=== PATIENT | male | born 1940 | race African-American/Black ===

== ENCOUNTER 2020-07-24 08:40 | Outpatient (RCR) | payer MEDICARE, SELFPAY | END 2020-12-05 11:00 | disposition home or self-care (01) | LOC: HO.WCC 08:40 | PROVIDERS: PCP Internal Medicine; Visit Provider Physician Assistant | DX: I87.332 Chronic venous hypertension (idiopathic) with ulcer and inflammation of left lower extremity (principal); L97.521 Non-pressure chronic ulcer of other part of left foot limited to breakdown of skin; L97.822 Non-pressure chronic ulcer of other part of left lower leg with fat layer exposed; I25.10 Atherosclerotic heart disease of native coronary artery without angina pectoris; I13.0 Hypertensive heart and chronic kidney disease with heart failure and stage 1 through stage 4 chronic kidney disease, or unspecified chronic kidney disease; I50.9 Heart failure, unspecified; N18.30 Chronic kidney disease, stage 3 unspecified; I25.2 Old myocardial infarction; I87.2 Venous insufficiency (chronic) (peripheral); I49.5 Sick sinus syndrome; Z95.810 Presence of automatic (implantable) cardiac defibrillator; Z87.891 Personal history of nicotine dependence | CPT/HCPCS: 11042; 97597; 99212; 99214 ==

== ENCOUNTER 2020-08-08 13:35 | Outpatient (REF) | payer MEDICARE, SELFPAY ==
--- NOTE | ~2020-08-08 | US_ITS ---
EXAMINATION: NONINVASIVE ASSESSMENT OF THE ARTERIES OF BOTH LOWER EXTREMITIES WITH BILATERAL LOWER EXTREMITY DUPLEX CLINICAL INFORMATION: Nonhealing ulcers TECHNIQUE: Ankle pulse volume recordings, ankle pressure measurements and ankle brachial indices were obtained of the lower extremity arterial system bilaterally in addition to duplex Doppler techniques with wave form analysis and measurement of velocities in the common femoral, profunda femoral, superficial femoral, popliteal and tibial arteries. The study was performed only at rest. COMPARISON: None FINDINGS: a) AT REST: RIGHT LEG: Right direct duplex Doppler findings: There is evidence of calcified atherosclerotic plaque. There is generalized arteriomegaly. There is visualized luminal narrowing of the distal SFA. Common femoral artery: 111 cm/s, Diastolic flow reversal: Yes * Superficial femoral artery (proximal, mid, distal): 100, 93 and 182 cm/s, Diastolic flow reversal: Yes Popliteal artery: 56 cm/s. Diastolic flow reversal: Yes * Posterior tibial artery: 79 cm/s, Diastolic flow reversal: Yes LEFT LEG: Left direct duplex Doppler findings: There is evidence of calcified atherosclerotic plaque. There is generalized arteriomegaly. There is a narrowing distal SFA. * Common femoral artery: 98 cm/s, Diastolic flow reversal: Yes * Superficial femoral artery (proximal, mid, distal): 56, 63 and 86 cm/s, Diastolic flow reversal: No. Monophasic flow. * Popliteal artery: 26 cm/s, Diastolic flow reversal: No. Monophasic flow. * Posterior tibial artery: 88. cm/s, Diastolic flow reversal: No. Monophasic flow. * US/US arterial duplex LE BI IMPRESSION: Atherosclerotic disease with calcified plaque and generalized arteriomegaly. On the right there is visible luminal narrowing of the right distal SFA and increased peak systolic velocity in the distal SFA. There is a normal triphasic waveform. On the left there is visible luminal narrowing of the distal SFA. There is abnormal monophasic flow seen throughout the left lower extremity distal to the common femoral artery and decreased peak systolic velocities in the superficial femoral and popliteal arteries.
== END 2020-08-08 13:36 | disposition home or self-care (01) ==
LOC: HO.US 13:35
PROVIDERS: PCP Internal Medicine; Visit Provider Physician Assistant
DX: I73.9 Peripheral vascular disease, unspecified (principal); L97.811 Non-pressure chronic ulcer of other part of right lower leg limited to breakdown of skin
CPT/HCPCS: 93925

== ENCOUNTER → 2020-09-04 08:59 | Outpatient (BNVA) | payer MEDICARE, SELFPAY | PROVIDERS: PCP Internal Medicine; Visit Provider Surgery Vascular Surgery | DX: I73.9 Peripheral vascular disease, unspecified (principal) | CPT/HCPCS: 99202 ==

== ENCOUNTER 2020-09-06 07:38 | Day surgery (SDC) | payer MEDICARE, SELFPAY ==
[2020-09-06] VITALS (9 sets, daily range): BP systolic 122–136; BP diastolic 62–76; PULSE 50–56; RESP 16–18; TEMP 35.6–36.2; O2SAT 92–100; BMI 26.4
[2020-09-06 08:11] LABS: Basophils Percent Auto 0.3 % (0-2); Eosinophils Percent Auto 0.9 % (0-4); Hematocrit 32.7 % (42-52); Hemoglobin 11.5 g/dl (14.0-18.0); Imm Gran Abs Auto 0.01 X10*3/uL (0.00-0.03); Imm Gran Pct Auto 0.3 % (0.0-0.4); Lymphocytes Absolute Auto 0.6 X10*3/uL (1.2-4.9); Lymphocytes Percent Auto 17.6 % (20-40); MANUAL DIFF FLAG SCAN; Mean Corpuscular HGB Conc 35.2 g/dl (31.0-36.0); Mean Corpuscular Hemoglobin 35.3 pg (27.0-33.0); Mean Corpuscular Volume 100.3 fL (80-98); Mean Platelet Volume 12.7 fL (9.4-12.4); Monocytes Absolute Auto 0.5 X10*3/uL (0.1-1.2); Monocytes Percent Auto 12.8 % (2-11); Neutrophils Absolute Auto 2.4 X10*3/uL (2.0-8.3); Neutrophils Percent Auto 68.1 % (45-73); Platelet Count 101 X10*3/uL (160-400); Red Blood Count 3.26 X10*6/uL (4.60-5.80); Red Cell Distribution Width 16.6 % (11.0-16.0); SCAN SMEAR FLAG 1; White Blood Count 3.5 X10*3/uL (4.8-10.8)
[2020-09-06] MEDS: 0.9 % Sodium Chloride 1,000 ML 100 ML IVCONT (08:27)
[2020-09-06 08:33] LABS: INTERNATIONAL NORM RATIO 1.6 (0.9-1.1); Prothrombin Time 18.8 SEC (10.8-13.0)
[2020-09-06 08:35] LABS: Partial Thromboplastin Time 36.8 SEC (24.1-38.0)
[2020-09-06 08:40] LABS: Anion Gap 19 (12-20); Blood Urea Nitrogen 20 mg/dL (9-16); Calcium 9.2 mg/dL (8.4-10.2); Carbon Dioxide 24 mmol/L (22-29); Chloride 102 mmol/L (96-108); Creatinine Clr Calc Pharmacy 37.6; Estimated Glomerular Filt Rate 39; Glucose Random 91 mg/dL (60-115); Potassium 3.8 mmol/L (3.3-5.1); Sodium 141 mmol/L (135-145)
[2020-09-06 09:12] LABS: SLIDE REVIEW VERIFIED
--- NOTE | 2020-09-06 11:55 | P.OP_ITS ---
Operative Note Operative Note Date of Service: 09/06/20 Narrative: Angiogram report from [facility] Preoperative diagnosis: Atherosclerosis of left lower extremity with nonhealing ulcer Postoperative diagnosis: Same Procedure: 1. Ultrasound-guided right common femoral access 2. Aortogram with left lower extremity runoff 3. Atherectomy and plasty of left SFA Surgeon:Perfecto Saini M.D. Law Firm Administrator:None Anesthesia: Local with moderate conscious sedation for a total of 82 minutes, performed by ia Specimens:none Drains:none Estimated blood loss: Less than 10 ml Indications: Very pleasant 80-year-old gentleman with nonhealing lower extremity ulcers presented with noninvasive testing concerning for SFA disease. He now presents for endovascular intervention The patient has signed the informed consent after reviewing risks, complications, benefits, and alternatives previously discussed with the patient in my office. The patient was given the opportunity to ask any additional questions or voice any concerns. All questions were answered to the patient's satisfaction. Procedure in detail: Patient was brought to the angiography suite prior to which a time-out was called for patient identification and site verification. Bilateral groins were prepped and draped in the standard surgical fashion. Under ultrasound guidance right common femoral was punctured with micro puncture needle and wire. Subsequently a precision 4 [place] sheath was then placed. InsideAxis™son wire was advanced to the level of the aorta. 4 [place] Flush catheter was brought up and parked at the level of the renal arteries. Aortogram was then undertaken. Catheter was brought down to the level of the iliac bifurcation. Iliacs were subsequently imaged. Catheter was then brought in up and over to the left side SFA. Runoff study was then undertaken. At this point he had mid and distal SFA disease. 5000 units of systemic heparin was administered and up and over 6 [place] sheath was then placed once this was done using Glidewire vantage we were able to traverse the lesion. We used a trail Blazer catheter to confirmed true lumen. At this point we placed a spider wire. We then used a Hawk 1 atherectomy device. Once this was accomplished in the mid SFA we turned our attention to the distal SFA. In each location approximately 3-4 passes was made with a device. Once this was accomplished device was removed. Completion demonstrated some residual stenosis. At this point we used a drug coated balloon. In the distal SFA a we used a 5 x 80 drug coated balloon. This was brought into position in under 3 minutes and insufflated for a total of 3 minutes in duration. In a similar fashion in the mid SFA we brought in a drug coated 5 x 40 balloon. This was brought into position in under 3 minutes and insufflated for a total of 3 minutes in duration. Completion angiogram demonstrated excellent result catheter wire sheath was brought back to the ipsilateral side. StarClose closure device was deployed. At the end the case sponge instrument counts were correct. Patient tolerated the procedure well. Returned to recovery with stable vitals. Interpretation of films: 1. Ultrasound demonstrates appropriate femoral puncture. Image of which was saved. 2. Aortogram demonstrates appropriate caliber aorta. Minimal disease. Appropriate take-off of the renals. 3. Iliac images demonstrate good flow through bilateral iliacs minimal disease. 4. Left side demonstrated good flow all the way down through the common femoral profundus SFA was normal in the proximal portion mid SFA had high grade stenosis and distal SFA had very calcified high-grade stenosis popliteal appeared to be were normal in caliber below-knee vessel appear to be peroneal and posterior tibial running all the way to the level of foot anterior tibial appear to be occluded. 5. Completion angiogram demonstrated excellent result and SFA was completely patent 6. Due to the use of a drug coated balloon a minimal of 6 months of aspirin and Plavix will be required Conclusion: 1. Successful angiogram 2. Successful left lower extremity atherectomy and plasty of SFA. This note is constructed using voice recognition software. While every effort has been made to ensure accuracy, dynamometer tester engine errors may have been included. Thank you for allowing me to participate in the care of your patient. Yours sincerely, Perfecto Saini MD, FACS, R.P.V.I.
== END 2020-09-06 17:15 | disposition home or self-care (01) ==
PROVIDERS: PCP Internal Medicine; Visit Provider Surgery Vascular Surgery
DX: I70.248 Atherosclerosis of native arteries of left leg with ulceration of other part of lower leg (principal); L97.829 Non-pressure chronic ulcer of other part of left lower leg with unspecified severity; I10 Essential (primary) hypertension; E78.00 Pure hypercholesterolemia, unspecified; Z79.899 Other long term (current) drug therapy; Z88.8 Allergy status to other drugs, medicaments and biological substances; Z87.891 Personal history of nicotine dependence
CPT/HCPCS: 36415; 37225; 76937; 80048; 85025; 85610; 85730; 99152; 99153; C1714; C1725; C1760; C1769; C1884; C1887; J2250; J3010; Q9967

== ENCOUNTER → 2020-09-08 08:25 | Outpatient (BNVA) | payer MEDICARE, SELFPAY | PROVIDERS: PCP Internal Medicine; Visit Provider Surgery Vascular Surgery | DX: I73.9 Peripheral vascular disease, unspecified (principal) | CPT/HCPCS: 99212 ==

== ENCOUNTER → 2020-09-19 09:51 | Outpatient (BNVA) | payer MEDICARE, SELFPAY | PROVIDERS: PCP Internal Medicine; Visit Provider Surgery Vascular Surgery | DX: I73.9 Peripheral vascular disease, unspecified (principal) | CPT/HCPCS: 99212 ==